=== PATIENT | male | born 1975 | race Hispanic/Latino ===

== ENCOUNTER → 2018-05-02 | Day surgery (SDC) | payer BC ==
[~2018-05-02] MED LIST: ACETAMINOPHEN 1000 MG/100 ML IV ONE; CEFTRIAXONE SOD 1 GM/NS 50 ML 50 ML IV ONE; DEXAMETHASONE SOD PHOS INJ 4 MG/ML VIAL ONE; FENTANYL CITRATE/PF 100MCG/2 ML INJ ONE; FLOMAX0.4 MG PO; IOPAMIDOL 610MG/1ML 300 MG/ML VIAL IV ONE; LIDOCAINE HCL 2% LOCAL INJ 5 ML SDV VIAL INJ ONE; MIDAZOLAM HCL 2 MG/2 ML VIAL ONE; ONDANSETRON HCL INJ 2MG/ML 2ML 2 MG/ML VIAL ONE; PROPOFOL IV EMULSION 10 MG/ML 20 ML VIAL ONE; SEVOFLURANE INHAL SOLN 250 ML PEN BTL ONE
--- OUTSIDE RECORDS SUMMARY | 2018-05-02 08:40 | XMS REPORT ---
Author Organization Unknown Address [address] [place] [address] Phone [phone] Care Team Providers Care Support Services Manager Name Role Phone REJI SIMEON MD 3 [phone] Allergies Code Code System Name Reaction Severity Status Onset RxNorm Azithromycin Facial Swelling Active NKDA Medications Name Status Start Date Stop Date amoxicillin 875 mg tablet Take 1 tablet every 12 hours by oral route. Completed 06/28/2017 amoxicillin 875 mg-potassium clavulanate 125 mg tablet Take 1 tablet every 12 hours by oral route for 10 days. Completed 11/07/2016 Bromfed DM 2 mg-30 mg-10 mg/5 mL syrup Take 10 mL every 6 hours by oral route as needed. Completed 06/28/2017 clotrimazole-betamethasone 1 %-0.05 % topical cream APPLY TO THE AFFECTED AND SURROUNDING AREAS OF SKIN BY TOPICAL ROUTE 2 TIMES PER DAY prn rash Active Not available fluticasone 50 mcg/actuation nasal spray,suspension [place] 1 spray every day by intranasal route. Active Not available lisinopril 10 mg tablet Take 1 tablet every day by oral route. Completed 06/28/2017 prednisone 20 mg tablet Take 2 tablets every day by oral route in the morning. Completed 06/28/2017 Tamiflu 75 mg capsule Take 1 capsule twice a day by oral route. Completed 06/28/2017 Problems Name Status Onset Date Source Body Mass Index 25-29 - Overweight Active 11/07/2016 Bronchitis Unknown 11/07/2016 Asthma Active 11/07/2016 Hypertensive Disorder Active 05/10/2017 Procedures Date Name Performed by Tooth Root Removal Notes: [place] Information not available Notes: Patient indicated no previous surgeries on (06/28/2017) Lab Results Date Name Specimen Result Interpretation Description Value Range Status Address 05/15/2017 Rapid Flu (A+B) Type Flu a negative [facility]: [address], [place] Type Flu B negative [facility]: [address] [place] [address] Rapid Strep Group a, Throat Strep negative [facility]: [address] [place] [address] Past Encounters 06/28/2017 Adult Health Examination; Venereal Disease Screening; Tinea Cruris; Epidermoid Cyst of Skin; Body Mass Index 25-29 - Overweight Reji Simeon MD: [address] [place] [address], [facility] [address] [place] [address], Ph. 05/15/2017 Influenza-like Symptoms; Fever; Acute Bronchitis Reji Simeon MD: [address] [place] [address], [facility] [address] [place] [address], Ph. 05/10/2017 Hypertensive Disorder; Gastroesophageal Reflux Disease without Esophagitis; Body Mass Index 20-24 - Normal Reji Simeon MD: [address] [place] [address], [facility] [address], [place] [address], Ph. 11/07/2016 Acute Sinusitis; Body Mass Index 25-29 - Overweight Reji Simeon MD: [address] [place] [address], [address] [address], Ph. 09/27/2016 Acute Sinusitis; Sore Throat Symptom Rosio Rodríguez MD: [address] [place] [address], [address] [address], Ph. Social History Smoking Status Former Smoker (2 PPD) Notes: quit 20 yrs during episode of bronchitis 2 to 2 1/2ppd Vaccine List Vaccine Type Tdap 04/08/2013 Notes: Flu vax - declined Plan of Care Patient Instructions RTC prn Kep appt for CPX, STD, HbA1C Kep appt for CPX, STD, HbA1C RTC CPX Reminders Provider Appointments None recorded. Lab None recorded. Referral None recorded. Procedures None recorded. Surgeries None recorded. Imaging None recorded. 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
[2018-05-02 10:45] VITALS: BP 153/95
--- NOTE | 2018-05-02 17:27 | Diagnostic Imaging Report ---
Retrograde urography CPT code: 52488 History: Stent placement Comparison: None Findings: RADIATION DOSE: Fluoroscopy Time: 00:01:33 hh:mm:ss Dose (Kerma) Area Product: 641.5 cGycm2 Air Kerma (AK) value has been reviewed. It is below the limits set by the Radiation Protocol Committee (RPC) committee. Fluoroscopic guidance was provided to Dr. Stuart Johnson for the purposes of a retrograde urogram. Multiple images submitted. Gro[employer] image demonstrates a calculus in the expected course of the distal left ureter. Injection of the distal right ureter demonstrates no evidence of filling defect or stricture. A wire and stent were placed into the left ureter. The collecting system was not injected. IMPRESSION: Interval placement of a double J stent into the left ureter. Signed by: Dr. Emelyn Crespo MD on 05/02/2018 5:23 PM
--- NOTE | 2018-05-05 09:21 | Operative Report ---
DATE OF PROCEDURE: May 02, 2018 PREOPERATIVE DIAGNOSES 1. Left ureteral calculus. 2. Left hydronephrosis. 3. Microscopic hematuria. POSTOPERATIVE DIAGNOSES 1. Left ureteral calculus. 2. Left hydronephrosis. 3. Urethral stricture disease. 4. Left ureteral stricture disease. 5. Microscopic hematuria. PROCEDURES 1. Cystourethroscopy with dilation of urethral stricture (entirely separate procedure for the multifocal urethral stricture disease). 2. Cystourethroscopy with right ureteral catheterization and right retrograde pyelogram (entirely separate procedure for microscopic hematuria). 3. Left-sided ureteroscopy with dilation of ureteral stricture (entirely separate procedure for left ureteral stricture disease). 4. Cystourethroscopy with insertion of a left indwelling ureteral stent (entirely separate procedure for the left hydronephrosis). 5. Supervision of fluoroscopy. 6. Interpretation of retrograde pyelography. ANESTHESIA: General. ESTIMATED BLOOD LOSS: Minimal. COMPLICATIONS: None. INDICATIONS FOR PROCEDURE: Mr. Stubbs is a very pleasant 42-year-old male with a history of left-sided flank pain. Found to have a 7 mm distal left ureteral calculus. He and I had a long discussion about alternatives, risks and, benefits including doing nothing, shock wave lithotripsy, ureteroscopy, percutaneous surgery, and open surgery. He voiced understanding of the options, alternatives, risks and, benefits and he elected to proceed. PROCEDURE IN DETAIL: After informed consent was obtained, the patient was taken to the operating suite and placed supine and underwent general anesthesia by the anesthesia service. He was then placed in the dorsal lithotomy position and sterilely prepped and draped in the standard fashion for cystoscopy. Attempts were made to insert a 22.5-Angolan cystoscope. This failed. The urethra was dilated. The cystoscope was then introduced. There was trilobar prostate hypertrophy. Panendoscopy of the bladder revealed no tumors and no stones. Both ureteral orifices were catheterized and retrograde pyelograms were performed. The right was normal. Left revealed a very large 7 mm distal obstructing stone. With a large amount of difficulty regarding an angle-tipped Glidewire, the proximal ureter was accessed. The ureter was dilated. Ureteroscope was advanced. However, could not pass the distal stricture. At this time, fearing avulsion, a 7 x 26 ureteral stent was deployed with a coil in the renal pelvis and a coil in the bladder. The patient's bladder was drained. He was awakened from anesthesia and transported to the recovery room in excellent condition. SUPERVISION OF FLUOROSCOPY, INTERPRETATION OF RETROGRADE URETERAL PYELOGRAPHY: I was present throughout the entire procedure and I supervised the use of fluoroscopy. There was no radiologist present at any time during this procedure. Attention was turned toward the left and right ureteral orifices, catheterized with a 5-Angolan open-ended catheter. Bilateral retrograde pyelograms were performed revealing normal right retrograde pyelogram. On the left, a 7 mm distal ureteral calculus with proximal hydronephrosis. Postoperative views on the left side reveals position. Job#: [id number] [place]
== END | disposition home or self-care (01) ==
LOC: OR 08:37
PROVIDERS: ATTEND Urology
DX: N13.2 Hydronephrosis with renal and ureteral calculous obstruction (principal); N35.919 Unspecified urethral stricture, male, unspecified site; N40.0 Benign prostatic hyperplasia without lower urinary tract symptoms; N13.5 Crossing vessel and stricture of ureter without hydronephrosis; I10 Essential (primary) hypertension; J45.909 Unspecified asthma, uncomplicated; Z88.1 Allergy status to other antibiotic agents; Z88.8 Allergy status to other drugs, medicaments and biological substances
CPT/HCPCS: 52332; 52344; 74420; 93005; C2617; J0131; J0696; J1100; J2001; J2250; J2405; J2704; Q9967

== ENCOUNTER → 2018-05-14 | Day surgery (SDC) | payer BC ==
[~2018-05-14] MED LIST changes: -ACETAMINOPHEN 1000 MG/100 ML IV ONE
--- OUTSIDE RECORDS SUMMARY | 2018-05-14 06:31 | XMS REPORT ---
Author Author [facility] Address Unknown Phone Unavailable Care Team Providers Care Physician Scribe Name Role Phone STUART HUERTA Unavailable Unavailable Problems This patient has no known problems. Allergies, Adverse Reactions, Alerts This patient has no known allergies or adverse reactions. Medications This patient has no known medications. Results Test Description Test Time Test Comments Text Results Atomic Results Result Comments RETROGRADE PYELOGRAM 2018-05-02 17:20:00 [place] [address] Patient Name: MICHELLE WU MR #: [id number] : 1975 Age/Sex: 42/M Req #: [id number] [facility] Physician: Ordered by: STUART HUERTA MD Report #: [id number] Location: OR Room/Bed: Procedure: [id number] DX/RETROGRADE PYELOGRAM Exam Date: 05/02/18 Exam Time: 925 REPORT STATUS: Signed Retrograde urography CPT code: 24235 History: Stent placement Comparison: None Findings: RADIATION DOSE: Fluoroscopy Time: 00:01:33 hh:mm:ss Dose (Kerma) Area Product: 641.5 cGycm2 Air Kerma (AK) value has been reviewed. It is below the limits set by the Radiation Protocol Committee (RPC) committee. Fluoroscopic guidance was provided to Dr. Stuart Huerta for the purposes of a retrograde urogram. Multiple images submitted. [employer] [facility] image demonstrates a calculus in the expected course of the distal left ureter. Injection of the distal right ureter demonstrates no evidence of filling defect or stricture. A wire and stent were placed into the left ureter. The collecting system was not injected. IMPRESSION: Interval placement of a double J stent into the left ureter. Signed by: Dr. Krystle Crespo MD on 05/02/2018 5:23 PM Dictated By: KRYSTLE CRESPO MD 22 Transcribed By: TIN on 05/02/181722 COPY TO: STUART HUERTA MD
--- NOTE | 2018-05-14 08:09 | Operative Report ---
DATE OF PROCEDURE: May 14, 2018 PREOPERATIVE DIAGNOSES 1. Indwelling left ureteral stent. 2. Left ureteral calculus. 3. Left hydronephrosis. 4. Hematuria. POSTOPERATIVE DIAGNOSES 1. Indwelling left ureteral stent. 2. Left ureteral calculus. 3. Left hydronephrosis. 4. Hematuria. PROCEDURES 1. Cystourethroscopy with removal of left indwelling ureteral stent (entirely separate procedure for the diagnosis of left indwelling stent). 2. Left-sided ureteroscopy with laser lithotripsy (entirely separate procedure to debulk a large left ureteral stone). 3. Left-sided ureteroscopy with stone extraction (entirely separate procedure for the explicit purposes of obtaining stones for analysis, not required for laser lithotripsy). 4. Supervision of fluoroscopy for the ureteroscopy portion. 5. Supervision of fluoroscopy for stent removal portion. 6. Interpretation of retrograde pyelography. ANESTHESIA: General. ESTIMATED BLOOD LOSS: Minimal. COMPLICATIONS: None. INDICATIONS FOR PROCEDURE: Mr. Stubbs is a very pleasant 42-year-old symptomatic patient with a very large approximately 9 mm x 9 mm left distal ureteral calculus. He and I had a long discussion about alternatives, risks and benefits including doing nothing, cystoscopy, ureteroscopy, shock wave lithotripsy, percutaneous surgery, and open surgery. He voiced understanding of the options, alternatives, risks, and benefits and he elected to proceed. PROCEDURE IN DETAIL: After informed consent was obtained, the patient was taken to the operating suite and was placed supine on the operating table and underwent general anesthesia by the anesthesia service. He was then placed in the dorsal lithotomy position and sterilely prepped and draped in the standard fashion for cystoscopy. A 22.5-Japanese cystoscope was inserted per urethra. Panendoscopy of the bladder revealed no tumors and no stones. Both ureteral orifices were within normal anatomic location and position and seen to efflux clear urine. The stent was seen in the ureteral orifice. It was grasped and removed intact. Guidewire was inserted. The ureteroscope was advanced to the level of the offending ureteral stone. Using a 365 micron fiber, the stone was obliterated into small fragments of 3 mm. The fragments were basket extracted. The scope was then advanced to the midureter. A retrograde pyelogram was performed with the ureteroscope showing no other filling defects. At this time, intimal removal of the ureteral calculi. Safety wire from the bladder was removed. Bladder was drained. The patient was awakened from anesthesia and transported to the recovery room in excellent condition with no untoward effects noted. SUPERVISION OF FLUOROSCOPY, INTERPRETATION OF RETROGRADE URETERAL PYELOGRAPHY: I was present throughout the entire procedure and I supervised the use of fluoroscopy for stent removal portion, as well as ureteroscopy portion. There was no radiologist present. Attention was turned toward the left ureter. It was catheterized with the ureteroscope. Retrograde pyelogram was performed through the ureteroscope revealing slightly dilated proximal ureter and collecting system. However, no other filling defects. IMPRESSION: Normal proximal left retrograde pyelogram. Job#: [id number] [place]
[2018-05-14 09:00] VITALS: BP 133/78
== END | disposition home or self-care (01) ==
LOC: OR 06:26
PROVIDERS: ATTEND Urology
DX: N13.2 Hydronephrosis with renal and ureteral calculous obstruction (principal); R00.1 Bradycardia, unspecified; I10 Essential (primary) hypertension; Z87.891 Personal history of nicotine dependence; Z96.0 Presence of urogenital implants; Z88.1 Allergy status to other antibiotic agents; Z91.018 Allergy to other foods
CPT/HCPCS: 74420; 88300; 93005; J0696; J1100; J2001; J2250; J2405; J2704; Q9967; S2070